=== PATIENT | female | born 1965 | race American Indian/Alaskan Native ===

== ENCOUNTER 2017-01-07 08:54 | Outpatient (CLI) | payer MEDICAID ==
--- NOTE | 2017-01-07 13:37 | Mammography Report ---
BILATERAL DIGITAL SCREENING MAMMOGRAM with CAD: 01/07/17 08:54:00 CLINICAL: Baseline screening. FINDINGS: The breasts are almost entirely fatty.Small bilateral benign intraparenchymal lymph nodes. No mass, architectural distortion or suspicious calcifications. IMPRESSION: No mammographic evidence of malignancy. BI-RADS CATEGORY: 1 - - Negative RECOMMENDATION: Routine mammographic screening in one year. COMMENT: Patient follow-up letters are generated by our [employer] application.
== END 2017-01-07 08:55 | disposition home or self-care (01) ==
LOC: SPVWC 08:54
PROVIDERS: ATTEND Hospitalist
DX: Z12.31 Encounter for screening mammogram for malignant neoplasm of breast (principal)
CPT/HCPCS: 77067; G0202